=== PATIENT | female | born 1935 ===

== ENCOUNTER 2018-10-21 09:20 | Emergency (ER) | payer OTHER ==
[~2018-10-21] VITALS: Ht 154.9 cm; Wt 65.8 kg
[2018-10-21] MEDS ORDERED: ALDACTONE25 MG (09:58)
[2018-10-21] MEDS ORDERED: TOPROL XL200 MG (09:58)
[2018-10-21] MEDS ORDERED: DIOVAN320 MG (09:58)
[2018-10-21] MEDS ORDERED: DOXAZOSIN MESYLA2 MG (09:58)
== END 2018-10-21 12:51 | disposition home or self-care (01) ==
LOC: ER 09:20
DX: S00.03XA Contusion of scalp, initial encounter (principal); W18.09XA Striking against other object with subsequent fall, initial encounter; Y93.89 Activity, other specified; Y92.89 Other specified places as the place of occurrence of the external cause; Y99.8 Other external cause status